=== PATIENT | female | born 1970 | race Caucasian/White ===

== ENCOUNTER 2018-01-26 16:19 | Emergency (ER) | payer OTHER, MEDICAID ==
[~2018-01-26] VITALS: Ht 165.1 cm; Wt 95.3 kg
[~2018-01-26 16:19] MED LIST: FLEXERIL PO; GAVISCON TABLE1 EACH PO; HERBAL SUPPLEMENTS; IBUPROFEN 800800 MG PO; NAPROSYN500 MG PO; NORCO 5-325 TA1 EACH PO; PROTONIX40 MG PO; ULTRAM 50MG TAB50 MG PO
[2018-01-26] MEDS ORDERED: ZPAK PO (17:03)
[2018-01-26] MEDS ORDERED: IBUPROFEN 800800 M1 PO (17:03)
[2018-01-26] MEDS ORDERED: PROMETHAZINE-D473 M1 PO (17:03)
[2018-01-26] MEDS ORDERED: MEDROLDOSEPACK PO (17:04)
[2018-01-26] MEDS ORDERED: PROAIR HFA8.5 GM INH (17:04)
[2018-01-26 17:36] VITALS: BP 137/93
== END 2018-01-26 17:36 | disposition home or self-care (01) ==
LOC: M.ERS 16:19
DX: J20.9 Acute bronchitis, unspecified (principal); I10 Essential (primary) hypertension; Z88.2 Allergy status to sulfonamides; Z88.5 Allergy status to narcotic agent; Z91.09 Other allergy status, other than to drugs and biological substances

== ENCOUNTER 2020-09-11 17:44 | Emergency (ER) | payer OTHER, MEDICAID ==
[~2020-09-11] VITALS: Ht 165.1 cm; Wt 104.3 kg
[~2020-09-11 17:44] MED LIST changes: +IBUPROFEN 800800 M1 PO; +MEDROLDOSEPACK PO; +PROAIR HFA8.5 GM INH; +PROMETHAZINE-D473 M1 PO; +ZPAK PO
[2020-09-11 18:06] VITALS: BP 158/101
[2020-09-11] MEDS ORDERED: HYDROCODON-ACE1 EAC7 PO ×2 (18:42→18:56)
[2020-09-11] MEDS ORDERED: FLEXERIL PO ×2 (18:42→18:56)
== END 2020-09-11 18:59 | disposition home or self-care (01) ==
LOC: M.ERS 17:44
DX: S16.1XXA Strain of muscle, fascia and tendon at neck level, initial encounter (principal); I10 Essential (primary) hypertension; V49.3XXA Car occupant (driver) (passenger) injured in unspecified nontraffic accident, initial encounter; Y93.I9 Activity, other involving external motion; Y92.413 State road as the place of occurrence of the external cause; Y99.8 Other external cause status